=== PATIENT | male | born 1995 | race Caucasian/White ===

== ENCOUNTER 2022-09-20 21:03 | Emergency (ER) | payer SELFPAY ==
[~2022-09-20] VITALS: Ht 170.2 cm; Wt 78.0 kg
[2022-09-20 22:30] VITALS: BP 151/86
[2022-09-20] MEDS ORDERED: IBUPROFEN 600MG TABLET PO ONE (22:30)
[2022-09-20] MEDS ORDERED: LIDOCAINE HCL/PF 1% 10 MG/ML 5ML VIAL INFIL ONE (22:30)
[2022-09-20] MEDS ORDERED: BACITRACIN ZINC OINT UDPKT TOP ONE (22:30)
== END 2022-09-21 00:03 | disposition home or self-care (01) ==
LOC: ER 21:03
DX: S61.012A Laceration without foreign body of left thumb without damage to nail, initial encounter (principal); W25.XXXA Contact with sharp glass, initial encounter; Y93.89 Activity, other specified; Y92.89 Other specified places as the place of occurrence of the external cause; Y99.8 Other external cause status
CPT/HCPCS: 12001; 99283; J3490; Z7610